=== PATIENT | female | born 1945 | race Caucasian/White ===

== ENCOUNTER → 2019-02-05 | Day surgery (SDC) | payer OTHER ==
[~2019-02-05] MED LIST: GABAPENTIN600 MG PO; LISINOPRIL10 MG PO; NORVASC5 MG PO; PEPCID40 MG PO; PERCOCET 10-321 EACH PO; PRAVASTATIN SOD40 MG PO; PREVACID30 MG PO; SINGULAIR10 MG PO; ULTRAM ER200 MG PO; ZANTAC300 MG PO
== END | disposition home or self-care (01) ==
LOC: ADM 02-02 11:45 → CIR.AMB 06:28
DX: R15.9 Full incontinence of feces (principal); T85.111A Breakdown (mechanical) of implanted electronic neurostimulator of peripheral nerve electrode (lead), initial encounter
CPT/HCPCS: 64585; 64590; C1767

== ENCOUNTER 2020-07-28 07:30 | Day surgery (SDC) | payer OTHER ==
[~2020-07-28 07:30] MED LIST changes: +LIPITOR20 MG PO; +PROTONIX20 MG PO; +SULINDAC1 GM; +TESSALON PERLE100 MG PO
== END 2020-07-28 15:11 | disposition home or self-care (01) ==
LOC: CIR.AMB 07:30
PROVIDERS: ATTEND Colon & Rectal Surgery
DX: T85.111A Breakdown (mechanical) of implanted electronic neurostimulator of peripheral nerve electrode (lead), initial encounter (principal); T85.732A Infection and inflammatory reaction due to implanted electronic neurostimulator of peripheral nerve, electrode (lead), initial encounter; Z20.822 Contact with and (suspected) exposure to COVID-19
CPT/HCPCS: 64590; 64581; 95972; C1778; L8679